=== PATIENT | male | born 1990 ===

== ENCOUNTER 2024-04-28 17:44 | Emergency (ER) | payer SELFPAY ==
[2024-04-28] MEDS: ALPRAZolam 0.25 MG Tab PO ONE (18:31)
== END 2024-04-28 18:50 | disposition home or self-care (01) ==
LOC: LB.ED 17:44
DX: S09.90XA Unspecified injury of head, initial encounter (principal); Z88.5 Allergy status to narcotic agent; Z79.899 Other long term (current) drug therapy; W00.0XXA Fall on same level due to ice and snow, initial encounter; Y93.89 Activity, other specified
CPT/HCPCS: 70450; 99283; 99284; A9270-GY